=== PATIENT | male | born 1940 | race Hispanic/Latino ===

== ENCOUNTER 2021-08-12 18:29 | Emergency (ER) | payer MEDICARE ==
[~2021-08-12] VITALS: Ht 182.9 cm; Wt 102.1 kg
[2021-08-12 19:08] LABS: BASOPHILS % (AUTO) 0.6 % (0.0-5.0); EOSINOPHILS % (AUTO) 2.8 % (0.0-8.0); HEMATOCRIT 41.1 % (42-54); LYMPHOCYTES % (AUTO) 25.5 % (21.0-51.0); MEAN CORPUSCULAR HEMOGLOBIN 31.4 pg (27.0-33.0); MEAN CORPUSCULAR HGB CONC 31.9 g/dL (32.0-36.0); MEAN CORPUSCULAR VOLUME 98.6 fL (79-99); MONOCYTES % (AUTO) 8.4 % (3.0-13.0); NEUTROPHILS % (AUTO) 62.5 % (40.0-77.0); PLATELET COUNT (AUTO) 238 K/uL (130-400); RED BLOOD CELL COUNT(AUTO) 4.17 MIL/uL (4.50-6.20); RED CELL DISTRIBUTION WIDTH 12.7 % (11.0-15.5); WHITE BLOOD COUNT (AUTO) 8.7 K/uL (4.8-10.8)
[2021-08-12 19:26] LABS: CREATININE 1.1 mg/dL (0.5-1.5); POTASSIUM 4.2 mmol/L (3.5-5.1)
[2021-08-12 19:29] LABS: B-TYPE NATRIURETIC PEPTIDE 116 pg/mL (0-100)
[2021-08-12 19:39] LABS: ALBUMIN 3.7 g/dL (3.5-5.0); BILIRUBIN,TOTAL 0.5 mg/dL (0.2-1.0); TOTAL PROTEIN, SERUM 7.8 g/dL (6.0-8.3)
[2021-08-12 21:18] LABS: APPEARANCE,URINE Clear (CLEAR); BILIRUBIN,URINE Negative (NEGATIVE); COLOR,URINE Dark Yellow (YELLOW); GLUCOSE, URINE (UA) 250 mg/dL (NEGATIVE); KETONES,URINE Trace mg/dL (NEGATIVE); LEUKOCYTE ESTERASE ,URINE Negative (NEGATIVE); NITRATE,URINE Negative (NEGATIVE); OCCULT BLOOD,URINE Negative (NEGATIVE); PH,URINE 5.5 (5.0-8.0); PROTEIN,URINE Trace mg/dL (NEGATIVE)
[2021-08-12 21:24] LABS: RBC,URINE 0-1 /HPF (0-1); WBC,URINE 0-1 /HPF (0-1)
[2021-08-12 21:25] LABS: BACTERIA,URINE Rare /HPF (None Seen); SQUAMOUS EPITHELIAL CELL,UR Rare /HPF (0-2)
[2021-08-12 21:59] VITALS: BP 131/64
== END 2021-08-12 22:20 | disposition home or self-care (01) ==
LOC: EDH 18:29
DX: R53.1 Weakness (principal); E11.9 Type 2 diabetes mellitus without complications; E78.00 Pure hypercholesterolemia, unspecified; I11.9 Hypertensive heart disease without heart failure; I25.10 Atherosclerotic heart disease of native coronary artery without angina pectoris; J45.909 Unspecified asthma, uncomplicated; Z95.0 Presence of cardiac pacemaker
CPT/HCPCS: 36415; 71045; 80053; 81001; 83880; 84484; 85025; 86140; 93005

== ENCOUNTER 2023-06-28 10:44 | Emergency (ER) | payer MEDICARE ==
[~2023-06-28] VITALS: Ht 170.2 cm; Wt 79.4 kg
[2023-06-28] MEDS ORDERED: DIAZEPAM 5 MG TABLET PO ONE (11:30)
[2023-06-28] MEDS ORDERED: TIZANIDINE HCL 2 MG TABLET PO SCH (11:30)
[2023-06-28] MEDS ORDERED: IBUPROFEN 600 MG TABLET PO ONE (11:30)
[2023-06-28] MEDS ORDERED: PREDNISONE 20 MG TABLET PO ONE (11:30)
[2023-06-28] MEDS ORDERED: GABAPENTIN 300 MG CAPSULE PO SCH (11:30)
[2023-06-28 13:54] VITALS: BP 138/70; PULSE 78; RESP 18; O2SAT 100
== END 2023-06-28 17:01 | disposition home or self-care (01) ==
LOC: EDH 10:44
DX: S40.011A Contusion of right shoulder, initial encounter (principal); S80.01XA Contusion of right knee, initial encounter; E11.9 Type 2 diabetes mellitus without complications; F20.9 Schizophrenia, unspecified; Z95.0 Presence of cardiac pacemaker; F31.9 Bipolar disorder, unspecified; X58.XXXA Exposure to other specified factors, initial encounter; Y93.89 Activity, other specified; Y92.89 Other specified places as the place of occurrence of the external cause; Y99.8 Other external cause status
CPT/HCPCS: 72170; 73030; 73562

== ENCOUNTER 2024-03-25 09:32 | Emergency (ER) | payer MEDICARE ==
[~2024-03-25] VITALS: Ht 185.4 cm; Wt 81.6 kg
[2024-03-25 09:34] VITALS: BP 144/59; PULSE 110; RESP 20
[2024-03-25] MEDS ORDERED: NEOM28.36 TP (09:46)
[2024-03-25] MEDS: BACITRACIN 1 EACH PACKET TP ONE (10:15)
== END 2024-03-25 10:18 | disposition home or self-care (01) ==
LOC: EDH 09:32
DX: S00.01XA Abrasion of scalp, initial encounter (principal); I10 Essential (primary) hypertension; E11.9 Type 2 diabetes mellitus without complications; E78.00 Pure hypercholesterolemia, unspecified; Z98.890 Other specified postprocedural states; X58.XXXA Exposure to other specified factors, initial encounter; Y93.89 Activity, other specified; Y92.89 Other specified places as the place of occurrence of the external cause; Y99.8 Other external cause status